=== PATIENT | male | born 1975 ===

== ENCOUNTER 2024-12-02 14:26 | Emergency (ER) | payer BC ==
[2024-12-02] MEDS ORDERED: Bacitracin Oint 1 GM U/D Packet TOP ONE (15:18)
== END 2024-12-02 15:25 | disposition home or self-care (01) ==
LOC: DL.ED 14:26
DX: S61.411A Laceration without foreign body of right hand, initial encounter (principal); W26.8XXA Contact with other sharp object(s), not elsewhere classified, initial encounter
CPT/HCPCS: 12002; 99282; J2003